=== PATIENT | male | born 1955 | race Caucasian/White ===

== ENCOUNTER 2016-12-07 21:14 | Emergency (ER) | payer OTHER ==
[~2016-12-07] VITALS: Ht 170.2 cm; Wt 178.6 kg
[~2016-12-07 21:14] MED LIST: ACETAMINOPHEN325 M1 PO; ACIDOPHILUS1 EAC5 PO; ALAVERT10 MG PO; ALBUTEROL SULFATE; AMMONIUM LACTA140 GM TP; AMMONIUM LACTA224 GM TP; AMPICILLIN500 M1 PO; ATROVENT 0.06%15 ML BOTH NARES; ATROVENT 00.5 MG/2.5 IH; BICARSIM80 MG PO; BISAC-EVAC10 MG PR; CEFDINIR300 MG PO; CELEXA10 MG PO; CELEXA20 MG PO; CELEXA40 MG PO; CLARITIN10 M3 PO; CLARITIN10 MG PO; COLACE100 MG PO; DOXYCYCLINE HY100 MG PO; DULCOLAX10 MG PR; DuoNeb IH; ENEMA133 M2 PR; FERROUS SULFAT325 MG PO; FLEET ENEMA; FLEET ENEMA-AD118 ML PR; FLOMAX0.4 MG PO; FLONASE16 G1 BOTH NARES; FUROSEMIDE80 MG PO; GABAPENTIN400 MG PO; GABAPENTIN600 MG PO; GAS RELIEF 8080 MG PO; GLIPIZIDE10 MG PO; GLUCOPHAGE1000 MG PO; Glucophage PO; HYDROCODON-ACE1 EA14 PO; HYDROCODON-ACE1 EAC7 PO; HYDROCODON-ACE1 EAC8 PO; IPRATROPIU0.2 MG/1 M IH; K-DUR20 MEQ PO; KADIAN100 MG PO; KEFLEX500 MG PO; KETOROLAC TROME10 ML RIGHT EYE; KLOR-CON 1010 ME1 PO; KLOR-CON M2020 MEQ PO; LAMISIL AF133 GM TP; LAMISIL AT12 GM TP; LANTUS 10100 UNITS/ SC; LANTUS 3 M100 UNITS/ SC; LANTUS 3 M100 UNITS1 SC; LANTUS100 UNIT/1 SQ; LASIX40 MG PO; LAXATIVE SUPPOS10 MG RC; LISINOPRIL; LISINOPRIL20 MG PO; LISINOPRIL5 MG PO; LOPERAMIDE2 M1 PO; LOPERAMIDE2 MG PO; LORATADINE10 M2 PO; Levaquin PO; Lotrimin Cream TP; MAALOX ADVANCE355 ML PO; MELOXICAM15 MG PO; MELOXICAM7.5 MG PO; METAMUCIL PACKE1 PKT PO; METFORMIN HCL1000 MG PO; METOLAZONE5 MG PO; MILK OF MAGN PO; MITRAZOL POWDER30 GM TP; MORPHINE SULFAT15 M1 PO; MORPHINE SULFAT60 MG PO; MORPHINE SULFATE; MS CONTIN,ORAMO15 M1 PO; MS CONTIN,ORAMO60 MG PO; MS Contin,Oramorph S PO; MULTIVITAMIN1 EAC2 PO; MULTIVITAMINS1 EAC2 PO; MYTAB GAS80 MG PO; NEURONTIN300 MG PO; NEURONTIN600 MG PO; NORCO 7.5/321 TABLET PO; NORVASC10 MG PO; NOVOLOG 10100 UNITS/ SC; NOVOLOG 10100 UNITS/ SQ; NOVOLOG MI100 UNIT/M SC; NOVOLOG PE100 UNITS/ SC; NOVOLOG100 UNIT/2 SQ; Neurontin PO; Norvasc PO; OMEPRAZOLE20 M2 PO; OXYCODONE HCL20 M1 PO; PAIN RELIEF325 MG PO; PHILLIPS'400 MG/5 M PO; POTASSIUM CHLO20 ME2 PO; PREDNISONE2.5 MG PO; PREDNISONE50 MG PO; PRILOSEC OTC20 MG PO; PRILOSEC20 MG PO; PRILOSEC40 MG PO; PRINIVIL20 MG PO; PROVENTIL,2.5 MG/3 M IH; PROVENTIL2.5 MG/3 M IH; RECTIV30 GM PR; RISPERDAL0.5 MG PO; RISPERDAL1 MG PO; SENNA8.6 M1 PO; SENNA8.6 MG PO; SIMETHICONE80 MG PO; TIZANIDINE HCL4 MG PO; TRAZODONE HCL50 MG PO; TYLENOL REGULA325 MG PO; VITAMIN B12-FO1 EACH PO; VITAMIN D32000 UNIT PO; Vicodin,Norco 5/325 PO; ZANAFLEX4 M1 PO; Zestril,Prinivil PO; celeXA PO; predniSONE PO; risperDAL PO
[2016-12-07 23:22] LABS: BASOPHIL COUNT 0.1 K/uL (0-0.1); EOSINOPHIL (%) 1.4 % (0-5); EOSINOPHIL COUNT 0.2 K/uL (0-0.3); HEMATOCRIT 41.4 % (38.0-50.0); IMMATURE GRANULOCYTE (%) 0.5 % (0.0-0.7); IMMATURE GRANULOCYTE COUNT 0.1 K/uL; INSTRUMENT ABS NEUTROPHIL CT 9.3 K/uL; MCH 26.3 PG (29.0-34.0); MCHC 31.6 G/DL (30.0-36.0); MONOCYTE (%) 6.6 % (3-12); MONOCYTE COUNT 0.8 K/uL (0-0.8); NEUTROPHIL (%) 75.2 % (45-76); NEUTROPHIL COUNT 9.3 K/uL (1.8-6.4); PLATELET COUNT 242 K/uL (156-360); RBC DIS.WIDTH-CV 15.3 % (11.8-14.6); RBC DIS.WIDTH-SD 46.5 % (39-53); RED BLOOD COUNT 4.99 M/uL (4.00-5.50); WHITE BLOOD COUNT 12.3 K/uL (4.1-10.2)
[2016-12-07 23:38] LABS: CHLORIDE 108 mEq/L (99-109); POTASSIUM 4.4 mEq/L (3.7-5.4); SODIUM 136 mEq/L (136-147)
[2016-12-07 23:40] LABS: GLUCOSE 200 mg/dL (70-99)
[2016-12-07 23:41] LABS: ANION GAP 8 MEQ/L (2-14)
[2016-12-07 23:43] LABS: GFR ESTIMATE (CALCULATED) > 59 mL/min/
[2016-12-07 23:44] LABS: UREA NITROGEN (BUN) 10 mg/dL (9-23)
[2016-12-08 02:03] VITALS: BP 123/54
== END 2016-12-08 02:05 | disposition home or self-care (01) ==
LOC: EME → EDBD 21:14 → EME 21:14
PROVIDERS: Emergency Medicine
DX: R51 Headache (principal); G89.29 Other chronic pain; M25.552 Pain in left hip; I10 Essential (primary) hypertension; J45.909 Unspecified asthma, uncomplicated; E11.9 Type 2 diabetes mellitus without complications; Z79.4 Long term (current) use of insulin; Z79.52 Long term (current) use of systemic steroids; Z79.891 Long term (current) use of opiate analgesic; E66.01 Morbid (severe) obesity due to excess calories; Z68.44 Body mass index [BMI] 60.0-69.9, adult; Z96.0 Presence of urogenital implants; Z99.81 Dependence on supplemental oxygen; Z87.891 Personal history of nicotine dependence
CPT/HCPCS: 80048; 81003; 85025; 99281; 99284; J1200; J1885; J2765; J7030

== ENCOUNTER 2017-01-22 12:57 | Inpatient (IN) | payer OTHER ==
[~2017-01-22] VITALS: Ht 170.2 cm; Wt 175.0 kg
[2017-01-22 15:00] LABS: HEMATOCRIT 46.1 % (38.0-50.0); MCH 26.3 PG (29.0-34.0); MCHC 31.7 G/DL (30.0-36.0); MCV 83.1 FL (86-99); MEAN PLAT.VOLUME 9.6 uM^3 (9.0-12.4); PLATELET COUNT 285 K/uL (156-360); RBC DIS.WIDTH-CV 14.6 % (11.8-14.6); RBC DIS.WIDTH-SD 44.2 % (39-53); RED BLOOD COUNT 5.55 M/uL (4.00-5.50); WHITE BLOOD COUNT 13.7 K/uL (4.1-10.2)
[2017-01-22 15:12] LABS: CHLORIDE 105 mEq/L (99-109); POTASSIUM 4.5 mEq/L (3.7-5.4); SODIUM 139 mEq/L (136-147)
[2017-01-22 15:14] LABS: GLUCOSE 224 mg/dL (70-99)
[2017-01-22 15:15] LABS: ANION GAP 12 MEQ/L (2-14)
[2017-01-22 15:16] LABS: TOTAL BILIRUBIN 0.3 mg/dL (0.0-1.0)
[2017-01-22 15:18] LABS: ALKALINE PHOSPHATASE 105 IU/L (3-129); GFR ESTIMATE (CALCULATED) > 59 mL/min/
[2017-01-22 15:19] LABS: UREA NITROGEN (BUN) 13 mg/dL (9-23)
[2017-01-22] MEDS ORDERED: EPITOL200 MG PO (17:01)
[2017-01-22] MEDS ORDERED: ERGOCALCIF50000 UNIT PO (17:01)
[2017-01-22] MEDS ORDERED: TOPAMAX100 MG PO (17:01)
[2017-01-22] MEDS ORDERED: LASIX20 MG PO (17:02)
[2017-01-22] MEDS ORDERED: PREDNISONE1 MG PO (17:02)
[2017-01-22] MEDS ORDERED: GAS RELIEF125 MG PO (17:03)
[2017-01-22 20:34] VITALS: BP 142/63
[2017-01-22 22:34] VITALS: BP 102/51
[2017-01-23 03:46] VITALS: BP 110/56
[2017-01-23 04:04] LABS: POINT-OF-CARE METER ID UU13113725
[2017-01-23 07:25] VITALS: BP 116/58
[2017-01-23 07:38] LABS: BASOPHIL COUNT 0.1 K/uL (0-0.1); EOSINOPHIL (%) 2.6 % (0-5); EOSINOPHIL COUNT 0.3 K/uL (0-0.3); HEMATOCRIT 38.2 % (38.0-50.0); IMMATURE GRANULOCYTE (%) 0.4 % (0.0-0.7); LYMPHOCYTE COUNT 2.2 K/uL (1.0-2.8); MCH 26.9 PG (29.0-34.0); MCHC 31.7 G/DL (30.0-36.0); MCV 84.9 FL (86-99); MONOCYTE (%) 6.6 % (3-12); MONOCYTE COUNT 0.7 K/uL (0-0.8); PLATELET COUNT 233 K/uL (156-360); RBC DIS.WIDTH-CV 14.8 % (11.8-14.6); RBC DIS.WIDTH-SD 45.7 % (39-53); WHITE BLOOD COUNT 10.3 K/uL (4.1-10.2)
[2017-01-23 07:59] LABS: ANION GAP 8 MEQ/L (2-14); CHLORIDE 106 MEQ/L (99-109); GFR ESTIMATE (CALCULATED) > 59 mL/min/; GLUCOSE 146 mg/dL (70-99); SAMPLE HEMOLYSIS CHECK 0; SAMPLE ICTERIC CHECK 0; SAMPLE LIPEMIA CHECK 0; SODIUM 138 MEQ/L (136-147); UREA NITROGEN (BUN) 12 mg/dL (9-23)
[2017-01-23 11:20] VITALS: BP 120/57
[2017-01-23 15:25] VITALS: BP 118/57
[2017-01-23 16:42] LABS: ADD MIUA? YES; BILIRUBIN NEGATIVE; BLOOD NEGATIVE; COLOR YELLOW ((YELLOW)); GLUCOSE (STRIP) NEGATIVE; KETONES NEGATIVE; LEUKOCYTES LARGE; NITRITE POSITIVE; PROTEIN (STRIP) NEGATIVE; UROBILINOGEN 0.2 MG/DL (0.2-1.0)
[2017-01-23 17:10] LABS: BACTERIA RARE /HPF; EPITHELIAL CELLS NONE SEEN /HPF; MUCUS NONE SEEN /LPF; RED BLOOD CELLS 20-30 /HPF (0-5)
[2017-01-23 19:56] VITALS: BP 140/70
[2017-01-23 23:36] VITALS: BP 135/55
[2017-01-24 04:26] LABS: POINT-OF-CARE METER ID UU13113725
[2017-01-24 04:47] VITALS: BP 112/56
[2017-01-24 08:38] LABS: HEMATOCRIT 39.7 % (38.0-50.0); MCH 27.1 PG (29.0-34.0); MCHC 31.5 G/DL (30.0-36.0); MCV 86.1 FL (86-99); MEAN PLAT.VOLUME 9.9 uM^3 (9.0-12.4); PLATELET COUNT 223 K/uL (156-360); RBC DIS.WIDTH-CV 14.9 % (11.8-14.6); RBC DIS.WIDTH-SD 46.9 % (39-53); RED BLOOD COUNT 4.61 M/uL (4.00-5.50)
[2017-01-24 09:04] LABS: Estimated Average Glucose 174 mg/dL (70-123); HEMOGLOBIN A1c (GLYCOHEMOGLOB) 7.7 % HGB (Below 5.7)
[2017-01-24 09:07] LABS: ANION GAP 7 MEQ/L (2-14); CHLORIDE 107 MEQ/L (99-109); GFR ESTIMATE (CALCULATED) > 59 mL/min/; GLUCOSE 149 mg/dL (70-99); POTASSIUM 4.5 MEQ/L (3.7-5.4); SAMPLE HEMOLYSIS CHECK 0; SAMPLE ICTERIC CHECK 0; SAMPLE LIPEMIA CHECK 0; SODIUM 140 MEQ/L (136-147); UREA NITROGEN (BUN) 13 mg/dL (9-23)
[2017-01-24 12:35] VITALS: BP 132/61
[2017-01-24 16:53] VITALS: BP 116/58
[2017-01-24 20:56] LABS: POINT-OF-CARE METER ID UU13113725
[2017-01-24 22:38] VITALS: BP 129/60
[2017-01-25 05:55] LABS: POINT-OF-CARE METER ID UU13113725
[2017-01-25 07:35] VITALS: BP 133/62
[2017-01-25] MEDS ORDERED: BACTRIM,SEPT1 TABLET PO (09:27)
[2017-01-25 11:22] LABS: POINT-OF-CARE METER ID UU13113725
[2017-01-25 11:47] LABS: GFR ESTIMATE (CALCULATED) > 59 mL/min/; UREA NITROGEN (BUN) 11 mg/dL (9-23)
== END 2017-01-25 14:00 | disposition home health service (06) | DRG 593 ==
LOC: EME 12:57 → 5EAST 17:56 → EDOF 17:56 → 5EAST 19:55
PROVIDERS: Hospitalist; Internal Medicine; Nurse Practitioner Family
DX: L89.610 Pressure ulcer of right heel, unstageable (principal); L89.622 Pressure ulcer of left heel, stage 2; E11.65 Type 2 diabetes mellitus with hyperglycemia; S91.301A Unspecified open wound, right foot, initial encounter; S91.302A Unspecified open wound, left foot, initial encounter; I50.32 Chronic diastolic (congestive) heart failure; E11.42 Type 2 diabetes mellitus with diabetic polyneuropathy; E11.8 Type 2 diabetes mellitus with unspecified complications; I10 Essential (primary) hypertension; G47.33 Obstructive sleep apnea (adult) (pediatric); B95.62 Methicillin resistant Staphylococcus aureus infection as the cause of diseases classified elsewhere; R33.9 Retention of urine, unspecified; F32.9 Major depressive disorder, single episode, unspecified; G89.4 Chronic pain syndrome; E66.01 Morbid (severe) obesity due to excess calories; M31.6 Other giant cell arteritis; Z68.44 Body mass index [BMI] 60.0-69.9, adult; E65 Localized adiposity; K21.9 Gastro-esophageal reflux disease without esophagitis; N40.0 Benign prostatic hyperplasia without lower urinary tract symptoms; R82.71 Bacteriuria; Z79.4 Long term (current) use of insulin; Z87.891 Personal history of nicotine dependence; Z91.19 Patient's noncompliance with other medical treatment and regimen
CPT/HCPCS: 73630; 80048; 80053; 80202; 81003; 82565; 82948; 83036; 84520; 85025; 85027; 87040; 87070; 87075; 87077; 87147; 87186; 87205; 93971; 99281; 99285; J1644; J1815; J2543; J3370; J7030; J7050; J7512

== ENCOUNTER 2017-03-04 16:42 | Emergency (ER) | payer OTHER ==
[~2017-03-04] VITALS: Ht 170.2 cm; Wt 172.0 kg
[~2017-03-04 16:42] MED LIST changes: +BACTRIM,SEPT1 TABLET PO; +EPITOL200 MG PO; +ERGOCALCIF50000 UNIT PO; +GAS RELIEF125 MG PO; +LASIX20 MG PO; +PREDNISONE1 MG PO; +TOPAMAX100 MG PO
[2017-03-04 19:23] LABS: HEMATOCRIT 41.1 % (38.0-50.0); MCH 26.8 PG (29.0-34.0); MCHC 32.1 G/DL (30.0-36.0); MCV 83.5 FL (86-99); MEAN PLAT.VOLUME 9.8 uM^3 (9.0-12.4); PLATELET COUNT 250 K/uL (156-360); RBC DIS.WIDTH-CV 14.7 % (11.8-14.6); RBC DIS.WIDTH-SD 44.6 % (39-53); RED BLOOD COUNT 4.92 M/uL (4.00-5.50); WHITE BLOOD COUNT 13.8 K/uL (4.1-10.2)
[2017-03-04 19:31] LABS: CHLORIDE 111 mEq/L (99-109); POTASSIUM 4.4 mEq/L (3.7-5.4); SODIUM 142 mEq/L (136-147)
[2017-03-04 19:33] LABS: GLUCOSE 282 mg/dL (70-99)
[2017-03-04 19:34] LABS: ANION GAP 9 MEQ/L (2-14)
[2017-03-04 19:35] LABS: TOTAL BILIRUBIN 0.1 mg/dL (0.0-1.0)
[2017-03-04 19:37] LABS: ALKALINE PHOSPHATASE 130 IU/L (3-129); GFR ESTIMATE (CALCULATED) 50 mL/min/
[2017-03-04 19:38] LABS: UREA NITROGEN (BUN) 24 mg/dL (9-23)
[2017-03-04 20:02] LABS: COLOR YELLOW ((YELLOW))
[2017-03-04 20:03] LABS: BILIRUBIN NEGATIVE; GLUCOSE (STRIP) NEGATIVE; KETONES NEGATIVE
[2017-03-04 20:04] LABS: BLOOD NEGATIVE; PH, URINE 8.5 (5-8); PROTEIN (STRIP) >2000; UROBILINOGEN 0.2 MG/DL (0.2-1.0)
[2017-03-04 20:05] LABS: ADD MIUA? YES; LEUKOCYTES NEGATIVE; NITRITE NEGATIVE
[2017-03-04 20:06] LABS: SPECIFIC GRAVITY 1.018 (1.000-1.030)
[2017-03-04 20:18] LABS: CASTS NONE SEEN /LPF; EPITHELIAL CELLS NONE SEEN /HPF; MUCUS NONE SEEN /LPF
[2017-03-04 20:19] LABS: AMORPHOUS PHOSPHATE CRYSTALS 4+; BACTERIA 4+ /HPF; CRYSTALS PRESENT; RED BLOOD CELLS NONE SEEN /HPF (0-5); UCUL ADDED? YES; WHITE BLOOD CELLS NONE SEEN /HPF (0-5)
[2017-03-04] MEDS ORDERED: KEFLEX500 MG PO (22:43)
[2017-03-05] VITALS: BP 136/64
== END 2017-03-04 22:44 | disposition home or self-care (01) ==
LOC: EME 16:42
PROC: 0T2BX0Z Change Drainage Device in Bladder, External Approach (ICD-10-PCS; principal; 2017-03-04)
DX: R82.71 Bacteriuria (principal); I10 Essential (primary) hypertension; K21.9 Gastro-esophageal reflux disease without esophagitis; E78.5 Hyperlipidemia, unspecified; E11.9 Type 2 diabetes mellitus without complications; Z79.4 Long term (current) use of insulin; Z79.84 Long term (current) use of oral hypoglycemic drugs; Z87.891 Personal history of nicotine dependence
CPT/HCPCS: 74176; 76870; 80053; 81003; 85027; 87077; 87086; 87186; 99281; 99284; J3010; J7030

== ENCOUNTER 2017-03-17 20:36 | Emergency (ER) | payer OTHER ==
[~2017-03-17] VITALS: Ht 170.2 cm; Wt 103.0 kg
[2017-03-17 21:30] LABS: ADD MIUA? YES; BILIRUBIN NEGATIVE; BLOOD NEGATIVE; COLOR YELLOW ((YELLOW)); GLUCOSE (STRIP) NEGATIVE; KETONES NEGATIVE; LEUKOCYTES LARGE; PROTEIN (STRIP) 30; SPECIFIC GRAVITY 1.012 (1.000-1.030); UROBILINOGEN 0.2 MG/DL (0.2-1.0)
[2017-03-17 21:44] LABS: BASOPHIL COUNT 0.1 K/uL (0-0.1); EOSINOPHIL (%) 1.1 % (0-5); EOSINOPHIL COUNT 0.1 K/uL (0-0.3); HEMATOCRIT 42.2 % (38.0-50.0); IMMATURE GRANULOCYTE (%) 0.6 % (0.0-0.7); IMMATURE GRANULOCYTE COUNT 0.1 K/uL; INSTRUMENT ABS NEUTROPHIL CT 9.6 K/uL; LYMPHOCYTE COUNT 1.9 K/uL (1.0-2.8); MCH 26.4 PG (29.0-34.0); MCHC 31.8 G/DL (30.0-36.0); MCV 83.1 FL (86-99); MONOCYTE COUNT 0.8 K/uL (0-0.8); NEUTROPHIL (%) 76.4 % (45-76); NEUTROPHIL COUNT 9.6 K/uL (1.8-6.4); PLATELET COUNT 217 K/uL (156-360); RBC DIS.WIDTH-CV 14.5 % (11.8-14.6); RBC DIS.WIDTH-SD 43.7 % (39-53); RED BLOOD COUNT 5.08 M/uL (4.00-5.50); WHITE BLOOD COUNT 12.6 K/uL (4.1-10.2)
[2017-03-17 21:48] LABS: CHLORIDE 105 mEq/L (99-109); POTASSIUM 4.5 mEq/L (3.7-5.4); SODIUM 137 mEq/L (136-147)
[2017-03-17 21:50] LABS: GLUCOSE 193 mg/dL (70-99)
[2017-03-17 21:51] LABS: ANION GAP 11 MEQ/L (2-14)
[2017-03-17 21:54] LABS: GFR ESTIMATE (CALCULATED) > 59 mL/min/
[2017-03-17 21:55] LABS: UREA NITROGEN (BUN) 16 mg/dL (9-23)
[2017-03-17 22:37] LABS: RED BLOOD CELLS 0-5 /HPF (0-5)
[2017-03-17 22:38] LABS: BACTERIA 3+ /HPF; EPITHELIAL CELLS 1+ /HPF; MUCUS NONE SEEN /LPF; NITRITE POSITIVE; UCUL ADDED? YES; WHITE BLOOD CELLS 15-20 /HPF (0-5)
[2017-03-17] MEDS ORDERED: CEFTIN250 MG PO (23:52)
[2017-03-18 01:09] VITALS: BP 142/78
== END 2017-03-18 01:11 | disposition home or self-care (01) ==
LOC: EME → EDBD 20:36 → EME 03-18 01:11
PROVIDERS: Emergency Medicine
DX: N39.0 Urinary tract infection, site not specified (principal); Z87.440 Personal history of urinary (tract) infections; K21.9 Gastro-esophageal reflux disease without esophagitis; E78.5 Hyperlipidemia, unspecified; E11.9 Type 2 diabetes mellitus without complications; I11.0 Hypertensive heart disease with heart failure; I50.9 Heart failure, unspecified; Z79.4 Long term (current) use of insulin; Z79.84 Long term (current) use of oral hypoglycemic drugs; Z87.891 Personal history of nicotine dependence
CPT/HCPCS: 80048; 81003; 85025; 87077; 87086 GA; 87186; 99281; 99285; J0692; J7050

== ENCOUNTER 2017-04-28 08:05 | Emergency (ER) | payer OTHER ==
[~2017-04-28] VITALS: Ht 170.2 cm; Wt 164.5 kg
[~2017-04-28 08:05] MED LIST changes: +CEFTIN250 MG PO
[2017-04-28] MEDS ORDERED: TRILEPTAL600 MG PO (09:20)
[2017-04-28] MEDS ORDERED: LAMICTAL25 MG PO (09:20)
[2017-04-28] MEDS ORDERED: CELEXA10 MG PO (09:20)
[2017-04-28] MEDS ORDERED: KEPPRA1000 MG PO (09:20)
[2017-04-28] MEDS ORDERED: RISPERDAL1 MG PO (09:20)
[2017-04-28 09:52] LABS: ADD MIUA? YES; BILIRUBIN NEGATIVE; BLOOD SMALL; COLOR YELLOW ((YELLOW)); GLUCOSE (STRIP) >=500; KETONES NEGATIVE; LEUKOCYTES LARGE; NITRITE NEGATIVE; PROTEIN (STRIP) NEGATIVE; SPECIFIC GRAVITY 1.023 (1.000-1.030); UROBILINOGEN 0.2 MG/DL (0.2-1.0)
[2017-04-28 09:57] LABS: BACTERIA 1+ /HPF; EPITHELIAL CELLS NONE SEEN /HPF; MUCUS TRACE /LPF; RED BLOOD CELLS 20-30 /HPF (0-5); UCUL ADDED? YES; WHITE BLOOD CELLS TNTC /HPF (0-5); WHITE BLOOD CELLS CLUMP FEW /HPF (0-5)
[2017-04-28] MEDS ORDERED: CIPRO500 MG PO (10:19)
[2017-04-28 10:55] VITALS: BP 132/46
== END 2017-04-28 11:09 | disposition home or self-care (01) ==
LOC: EME 08:05
PROVIDERS: Emergency Medicine
PROC: 0T2BX0Z Change Drainage Device in Bladder, External Approach (ICD-10-PCS; principal; 2017-04-28)
DX: T83.090A Other mechanical complication of cystostomy catheter, initial encounter (principal); N39.0 Urinary tract infection, site not specified; I50.9 Heart failure, unspecified; I10 Essential (primary) hypertension; E78.5 Hyperlipidemia, unspecified; N19 Unspecified kidney failure; E11.40 Type 2 diabetes mellitus with diabetic neuropathy, unspecified; G58.9 Mononeuropathy, unspecified; G89.29 Other chronic pain; Z87.891 Personal history of nicotine dependence; Z79.4 Long term (current) use of insulin; Z79.84 Long term (current) use of oral hypoglycemic drugs; Z99.81 Dependence on supplemental oxygen
CPT/HCPCS: 81003; 87077; 87086 GA; 87186; 99281; 99284; J3010

== ENCOUNTER 2017-06-07 10:44 | Emergency (ER) | payer OTHER ==
[~2017-06-07] VITALS: Ht 170.2 cm; Wt 166.0 kg
[~2017-06-07 10:44] MED LIST changes: +CIPRO500 MG PO; +KEPPRA1000 MG PO; +LAMICTAL25 MG PO; +TRILEPTAL600 MG PO
[2017-06-07 12:56] VITALS: BP 123/66
== END 2017-06-07 12:58 | disposition home or self-care (01) ==
LOC: EME 10:44
PROC: 0T2BX0Z Change Drainage Device in Bladder, External Approach (ICD-10-PCS; principal; 2017-06-07)
DX: T83.098A Other mechanical complication of other urinary catheter, initial encounter (principal); I10 Essential (primary) hypertension; E11.9 Type 2 diabetes mellitus without complications; Z79.4 Long term (current) use of insulin; E66.01 Morbid (severe) obesity due to excess calories; Z68.43 Body mass index [BMI] 50.0-59.9, adult; Z87.891 Personal history of nicotine dependence
CPT/HCPCS: 99281; 99284

== ENCOUNTER 2017-08-17 22:00 | Emergency (ER) | payer OTHER ==
[~2017-08-17] VITALS: Ht 177.8 cm; Wt 182.7 kg
[~2017-08-17 22:00] MED LIST changes: +LOVASTATIN20 MG PO; +LYRICA100 MG PO; +METHENAMINE HIPP1 G1 PO; +OXYCODONE HCL15 MG PO; -OXYCODONE HCL20 M1 PO; +PYRIDIUM100 MG PO; +TRAMADOL HCL50 MG PO
[2017-08-17 22:35] LABS: HEMATOCRIT 40.9 % (38.0-50.0); MCH 26.3 PG (29.0-34.0); MCV 82.1 FL (86-99); MEAN PLAT.VOLUME 9.9 uM^3 (9.0-12.4); PLATELET COUNT 222 K/uL (156-360); RBC DIS.WIDTH-CV 13.8 % (11.8-14.6); RED BLOOD COUNT 4.98 M/uL (4.00-5.50); WHITE BLOOD COUNT 13.8 K/uL (4.1-10.2)
[2017-08-17 22:46] LABS: CHLORIDE 104 mEq/L (99-109); POTASSIUM 4.4 mEq/L (3.7-5.4); SODIUM 134 mEq/L (136-147)
[2017-08-17 22:47] LABS: GLUCOSE 227 mg/dL (70-99)
[2017-08-17 22:49] LABS: ANION GAP 10 MEQ/L (2-14)
[2017-08-17 22:51] LABS: GFR ESTIMATE (CALCULATED) > 59 mL/min/ (58.99-99999)
[2017-08-17 22:52] LABS: UREA NITROGEN (BUN) 28 mg/dL (9-23)
[2017-08-18 00:04] LABS: ADD MIUA? YES; BILIRUBIN NEGATIVE; BLOOD SMALL; COLOR YELLOW ((YELLOW)); GLUCOSE (STRIP) NEGATIVE; KETONES NEGATIVE; LEUKOCYTES LARGE; NITRITE NEGATIVE; PROTEIN (STRIP) NEGATIVE; SPECIFIC GRAVITY 1.004 (1.000-1.030); UROBILINOGEN 0.2 MG/DL (0.2-1.0)
[2017-08-18] MEDS ORDERED: CIPRO500 MG PO (00:07)
[2017-08-18 00:20] LABS: RED BLOOD CELLS 0-5 /HPF (0-5)
[2017-08-18 00:21] LABS: BACTERIA RARE /HPF; EPITHELIAL CELLS RARE /HPF; MUCUS RARE /LPF; UCUL ADDED? YES
[2017-08-18 02:36] VITALS: BP 103/51
== END 2017-08-18 02:58 | disposition home or self-care (01) ==
LOC: EME → EDBD 22:00 → EME 08-18 02:58
PROVIDERS: Emergency Medicine
PROC: 0T2BX0Z Change Drainage Device in Bladder, External Approach (ICD-10-PCS; principal; 2017-08-17)
DX: N39.0 Urinary tract infection, site not specified (principal); T83.098A Other mechanical complication of other urinary catheter, initial encounter; I11.0 Hypertensive heart disease with heart failure; I50.9 Heart failure, unspecified; E78.5 Hyperlipidemia, unspecified; E11.9 Type 2 diabetes mellitus without complications; Z79.4 Long term (current) use of insulin; E66.01 Morbid (severe) obesity due to excess calories; Z68.43 Body mass index [BMI] 50.0-59.9, adult; Z87.891 Personal history of nicotine dependence
CPT/HCPCS: 80048; 81003; 85027; 87077; 87086; 87186; 99281; 99283

== ENCOUNTER 2017-09-16 12:36 | Emergency (ER) | payer OTHER ==
[~2017-09-16] VITALS: Ht 167.6 cm; Wt 177.9 kg
[2017-09-16 20:17] VITALS: BP 165/70
== END 2017-09-16 20:18 | disposition home or self-care (01) ==
LOC: EME 12:36
PROC: 0T2BX0Z Change Drainage Device in Bladder, External Approach (ICD-10-PCS; principal; 2017-09-16)
DX: T83.098A Other mechanical complication of other urinary catheter, initial encounter (principal); I50.9 Heart failure, unspecified; I11.0 Hypertensive heart disease with heart failure; K21.9 Gastro-esophageal reflux disease without esophagitis; F41.9 Anxiety disorder, unspecified; F32.9 Major depressive disorder, single episode, unspecified; F10.10 Alcohol abuse, uncomplicated; E78.5 Hyperlipidemia, unspecified; E11.40 Type 2 diabetes mellitus with diabetic neuropathy, unspecified; E66.01 Morbid (severe) obesity due to excess calories; G89.29 Other chronic pain; Z79.4 Long term (current) use of insulin; Z79.84 Long term (current) use of oral hypoglycemic drugs; Z87.891 Personal history of nicotine dependence

== ENCOUNTER 2017-11-17 16:56 | Emergency (ER) | payer OTHER ==
[~2017-11-17] VITALS: Ht 170.2 cm; Wt 182.8 kg
[2017-11-17 19:14] LABS: APPEARANCE SL.HAZY ((CLEAR)); BILIRUBIN NEGATIVE; BLOOD LARGE; COLOR YELLOW ((YELLOW)); GLUCOSE (STRIP) >=500; KETONES NEGATIVE; LEUKOCYTES LARGE; NITRITE NEGATIVE; PROTEIN (STRIP) 30; SPECIFIC GRAVITY 1.018 (1.000-1.030); UROBILINOGEN 0.2 MG/DL (0.2-1.0)
[2017-11-17 19:55] LABS: RED BLOOD CELLS TNTC /HPF (0-5); WHITE BLOOD CELLS TNTC /HPF (0-5)
[2017-11-17 19:56] LABS: BACTERIA 1+ /HPF; EPITHELIAL CELLS NONE SEEN /HPF; MUCUS NONE SEEN /LPF
[2017-11-17] MEDS ORDERED: KEFLEX500 MG PO (20:25)
[2017-11-17 22:01] VITALS: BP 136/55
== END 2017-11-17 22:11 | disposition home or self-care (01) ==
LOC: EME 16:56
PROVIDERS: Physician Assistant
PROC: 0T2BX0Z Change Drainage Device in Bladder, External Approach (ICD-10-PCS; principal; 2017-11-17)
DX: T83.098A Other mechanical complication of other urinary catheter, initial encounter (principal); Y83.3 Surgical operation with formation of external stoma as the cause of abnormal reaction of the patient, or of later complication, without mention of misadventure at the time of the procedure; N39.0 Urinary tract infection, site not specified; Z91.19 Patient's noncompliance with other medical treatment and regimen; I50.9 Heart failure, unspecified; I11.0 Hypertensive heart disease with heart failure; K21.9 Gastro-esophageal reflux disease without esophagitis; F41.9 Anxiety disorder, unspecified; E78.5 Hyperlipidemia, unspecified; E11.40 Type 2 diabetes mellitus with diabetic neuropathy, unspecified; E66.01 Morbid (severe) obesity due to excess calories; Z79.4 Long term (current) use of insulin; Z79.891 Long term (current) use of opiate analgesic; Z87.891 Personal history of nicotine dependence; F32.9 Major depressive disorder, single episode, unspecified; G89.29 Other chronic pain
CPT/HCPCS: 81003; 87077; 87086; 87147; 87186; 99281; 99285

== ENCOUNTER 2018-03-14 18:38 | Emergency (ER) | payer OTHER ==
[~2018-03-14] VITALS: Ht 195.6 cm; Wt 170.3 kg
[2018-03-14 18:47] VITALS: BP 129/62
== END 2018-03-14 21:30 | disposition home or self-care (01) ==
LOC: EME 18:38
PROC: 0T2BX0Z Change Drainage Device in Bladder, External Approach (ICD-10-PCS; principal; 2018-03-14)
DX: T83.090A Other mechanical complication of cystostomy catheter, initial encounter (principal); R33.8 Other retention of urine; I11.0 Hypertensive heart disease with heart failure; I50.9 Heart failure, unspecified; E78.5 Hyperlipidemia, unspecified; E11.9 Type 2 diabetes mellitus without complications; Z79.4 Long term (current) use of insulin; E66.01 Morbid (severe) obesity due to excess calories; Z68.41 Body mass index [BMI] 40.0-44.9, adult; Z87.891 Personal history of nicotine dependence

== ENCOUNTER 2018-04-21 07:57 | Emergency (ER) | payer OTHER ==
[~2018-04-21] VITALS: Ht 167.6 cm; Wt 174.0 kg
[2018-04-21 12:32] VITALS: BP 163/73
== END 2018-04-21 12:33 | disposition home or self-care (01) ==
LOC: EME 07:57
DX: T83.090A Other mechanical complication of cystostomy catheter, initial encounter (principal); N31.9 Neuromuscular dysfunction of bladder, unspecified; E11.40 Type 2 diabetes mellitus with diabetic neuropathy, unspecified; E66.01 Morbid (severe) obesity due to excess calories; I10 Essential (primary) hypertension; E78.5 Hyperlipidemia, unspecified; K21.9 Gastro-esophageal reflux disease without esophagitis; G89.29 Other chronic pain; I50.9 Heart failure, unspecified; G47.33 Obstructive sleep apnea (adult) (pediatric); F41.9 Anxiety disorder, unspecified; F32.9 Major depressive disorder, single episode, unspecified; Z79.4 Long term (current) use of insulin; Z87.891 Personal history of nicotine dependence; Z87.19 Personal history of other diseases of the digestive system
CPT/HCPCS: 99281; 99284; J3010